=== PATIENT | male | born 1990 | race African-American/Black ===

== ENCOUNTER 2017-04-07 16:08 | Emergency (ER) | payer OTHER ==
[2017-04-07] MEDS: DIPHTH,PERTUSS(ACELL),TET TOX 0.5 ML DISP.SYRIN. VAX IM ×2 (17:09)
[2017-04-07] MEDS: LIDOCAINE WITH 8.4% SOD BICARB 3 ML DISP.SYRIN. IJ ×2 (17:30)
== END 2017-04-07 18:29 | disposition home or self-care (01) ==
LOC: ER 16:08
DX: S61.012A Laceration without foreign body of left thumb without damage to nail, initial encounter (principal); Z90.49 Acquired absence of other specified parts of digestive tract; W34.09XA Accidental discharge from other specified firearms, initial encounter; Y93.89 Activity, other specified; Y92.89 Other specified places as the place of occurrence of the external cause; Y99.8 Other external cause status
CPT/HCPCS: 12001; 73140; 90471; 90715; 99285-25